=== PATIENT | female | born 1950 | race African-American/Black ===

== ENCOUNTER 2016-12-01 09:20 | Emergency (ER) ==
--- NOTE | 2016-12-01 09:50 | PROVIDER DOCUMENTATION ---
HPI-General Adult - General Chief Complaint: Generalized Pain Stated Complaint: HURTING ALL OVER,WEAKNESS Time Seen by Provider: 12/01/16 09:32 Source: patient Allergies/Adverse Reactions: Patient Allergies Allergy/AdvReac Type Severity Reaction Status Date / Time No Known Allergies Allergy Verified 12/01/16 09:45 - History of Present Illness -Gen Adult Nature of Presenting Problems: 66 y/o BF c/o generalized body aches x 1 day. Pt states mild cough, not productive. Fever/chills, although she has not taken her temp at home. Denies any sick contacts. Has not had the influenza vaccine. Reports more frequent urination, although she is unsure if this is any different than usual. States generalized abd. pain, some nausea. Denies V/D/C. Review of Systems - Adult - REVIEW OF SYSTEMS - ADULT Constitutional: reports: see HPI, chills, fever Eyes: reports: no symptoms reported. denies: blurred vision, double vision Ears, Nose, Mouth & Throat: reports: no symptoms reported. denies: ear pain, nose pain, throat pain Cardiovascular: reports: no symptoms reported. denies: chest pain, palpitations Respiratory: reports: see HPI, cough. denies: dyspnea on exertion, shortness of breath Gastrointestinal: reports: see HPI, abdominal pain, nausea. denies: diarrhea, vomiting Genitourinary: reports: see HPI, frequency. denies: dysuria, urgency Musculoskeletal: reports: no symptoms reported. denies: joint pain, joint swelling Integumentary: reports: no symptoms reported. denies: nail changes, rash Neurological: reports: no symptoms reported. denies: numbness, paresthesia Psychiatric: reports: no symptoms reported Endocrine: reports: no symptoms reported. denies: cold intolerance, heat intolerance Hematologic/Lymphatic: reports: blood clots. denies: easy bruising, prolonged bleeding Allergic/Immunologic: reports: no symptoms reported All Other Systems: Reviewed and Negative Past History - Adult - PAST MEDICAL HISTORY-ADULT Review of Records: reports: Nursing Assessment Review, Medications Reviewed Cardiovascular: reports: blood clots - PRIOR SURGERIES/PROCEDURES Surgical/Procedure History: reports: other (sinus surgery) - SOCIAL HISTORY Smoking: denies Alcohol Use Frequency: never Physical Exam-General - PHYSICAL EXAM-ADULT Initial Vital Signs Reviewed: Yes - CONSTITUTIONAL General Appearance: alert, mild distress - EYES Eyes: pink conjunctivae - HEAD, EARS, NOSE, MOUTH & THROAT HENMT: normocephalic/atraumatic, moist mucous membranes, pharyngeal erythema. negative: tonsillar exudate - NECK Neck: supple, normal inspection. negative: lymphadenopathy - RESPIRATORY Respiratory: lungs clear, normal breath sounds. negative: crackles, rales, rhonchi, stridor, wheezing - CARDIOVASCULAR Cardiovascular: regular rate, rhythm. negative: bradycardia, tachycardia - GASTROINTESTINAL (ABDOMEN) Abdominal Exam: normal bowel sounds, soft, tenderness (generalized). negative: distended, guarding, rigid, rebound, McBurney's point tenderness, Peñaloza's sign - MUSCULOSKELETAL Back Exam: no CVA tenderness Extremity: normal gait - SKIN Integumentary: normal color, normal turgor, warm/dry - NEUROLOGIC Neurologic: negative: aphasia - PSYCHIATRIC Psych/Mental Status: normal mood/affect, normal thought content, normal thought process, oriented x 3 Progress - PLAN OF CARE/RESULTS Progress/Plan/Lab Results: Laboratory Tests 12/01/16 09:46 Urine Source CLEAN CATCH Urine Color YELLOW Urine Turbidity CLEAR Urine pH 5.5 Ur Specific [place] 1.025 Urine Protein TRACE A Ur Glucose (Stick) NEGATIVE Ur Ketones (Stick) TRACE A Urine Blood SMALL A Urine Nitrite NEGATIVE Urine Bilirubin NEGATIVE Urobilinogen Dipstick NORMAL Urine Leukocytes SMALL A Urine WBC (Auto) <10 Urine RBC (Auto) <10 U Epithel Cells (Auto) <10 Urine Bacteria (Auto) NEGATIVE Orders Category Date Time Status FLAT/UPRIGHT ABD/1 VIEW CHEST [RAD] Stat Exams 12/01/16 09:44 Draft INFLUENZA SCREEN A/B Stat Lab 12/01/16 09:25 Completed URINALYSIS W/POSS RFLX CULT [URINALYSIS] Stat Lab 12/01/16 09:46 Completed URINE CULTURE [RM] Routine Lab 12/01/16 09:59 Received Acetaminophen [Tylenol] Med 12/01/16 10:56 Discontinued 1,000 mg PO NOW ONE Ondansetron Odt [Zofran Odt] Med 12/01/16 10:55 Discontinued 4 mg PO NOW ONE Vital Signs Temp Pulse Resp BP Pulse Ox 12/01/16 12:00 99.2 F 85 18 133/55 98 12/01/16 09:25 99.8 F H 110 H 18 101/46 98 No Known Allergies Allergy (Verified 12/01/16 09:45) Docusate Sodium [Colace] 100 mg PO BID PRN PRN #20 capsule 12/01/16 Magnesium Citrate [Citrate of Magnesia] 300 ml PO ONCE #1 bottle 12/01/16 Ondansetron [Zofran] 4 mg PO Q6H PRN PRN #20 tablet 12/01/16 Polyethylene Glycol 3350 [Miralax] 17 gm PO DAILY #14 powd.pack 12/01/16 Sulfamethoxazole/Trimethoprim [Bactrim Ds Tablet] 1 each PO BID #14 tablet 12/01 I&O 11/30/16 12/01/16 12/02/16 06:59 06:59 06:59 Output Total 15 Balance -15 Laboratory 12/01/16 09:46 Urine Source CLEAN CATCH Urine Color YELLOW Urine Turbidity CLEAR Urine pH 5.5 Ur Specific [place] 1.025 Urine Protein TRACE A Ur Glucose (Stick) NEGATIVE Ur Ketones (Stick) TRACE A Urine Blood SMALL A Urine Nitrite NEGATIVE Urine Bilirubin NEGATIVE Urobilinogen Dipstick NORMAL Urine Leukocytes SMALL A Urine WBC (Auto) <10 Urine RBC (Auto) <10 U Epithel Cells (Auto) <10 Urine Bacteria (Auto) NEGATIVE Discussed results and medication use with pt. Pt states feeling much better after tylenol and zofran. - XRAY 1 XRAY Study: Chest, Abdomen Impression: See EMR Report (constipation, per Dr. Corrales) Departure - Departure Time of Disposition Order: 11:50 DIAGNOSIS: Dehydration, mild UTI (urinary tract infection) Qualifiers: Urinary tract infection type: acute cystitis Hematuria presence: with hematuria Qualified Code(s): N30.01 - Acute cystitis with hematuria Constipation Qualifiers: Constipation type: unspecified constipation type Qualified Code(s): K59.00 - Constipation, unspecified Disposition: HOME 01 Certified Medical Emergency: Emergent Condition: Stable Additional Instructions: Take tylenol and/or motrin for pain. Take medications as directed. Drink plenty of fluids. Return if symptoms get worse. Follow up with PCP if symptoms get worse. ED Follow Up Instructions: You have been treated by a care provider in the Emergency Department. These instructions are being provided to you so you can have an understanding of how to care for yourself upon discharge. Upon discharge from the Emergency Department, you are responsible for making arrangements for follow-up care by a physician of your choice. Take all prescribed medications as directed. Return to the Emergency Department immediately for any new or worsening symptoms. You may call the Physician Referral phone number at [phone] to obtain a list of Physicians who are taking new patients. Prescriptions: Sulfamethoxazole/Trimethoprim [Bactrim Ds Tablet] 1 each PO BID #14 tablet Magnesium Citrate [Citrate of Magnesia] 300 ml PO ONCE #1 bottle Docusate Sodium [Colace] 100 mg PO BID PRN PRN #20 capsule PRN Reason: Constipation Polyethylene Glycol 3350 [Miralax] 17 gm PO DAILY #14 powd.pack Ondansetron [Zofran] 4 mg PO Q6H PRN PRN #20 tablet PRN Reason: Nausea Referrals: Edgardo Bergman MD [Primary Care Provider] - Forms: Return to School/Parent Work Instructions: Urinary Tract Infection, [id number], Dehydration, Adult, Easy- to-Read, Constipation, Adult Attestation - Physician/ Mid-level Attestation Patient care was provided by Mid-level provider ([employer]EP[employer] LASTER/PA):: Yes Mid-level provider:: Eleanor Abraham Mid-level documentation review:: The Mid-level provider documentation, treatment plan and medical decision making was reviewed by the physician who agrees with all treatment and medical decision making by the MLP.
[2016-12-01 09:52] LABS: URINE MICRO REVIEW NEEDED? NO; URINE SOURCE CLEAN CATCH
[2016-12-01 09:56] LABS: BILIRUBIN URINE NEGATIVE (NEGATIVE); BLOOD URINE SMALL (NEGATIVE); COLOR YELLOW; GLUCOSE URINE NEGATIVE (NEGATIVE); LEUKOCYTES URINE SMALL (NEGATIVE); NITRITE URINE NEGATIVE (NEGATIVE); PH URINE 5.5; PROTEIN URINE TRACE mg/dL (NEGATIVE); SP GRAVITY URINE 1.025; TURBIDITY URINE CLEAR (CLEAR); UR EPITHELIAL CELLS <10 /HPF (<10); URINE BACTERIA NEGATIVE /HPF; URINE CULTURE NEEDED? YES; URINE RBC <10 /HPF (<10); URINE WBC <10 /HPF (<10); UROBILINOGEN URINE NORMAL (NORMAL)
[2016-12-01] MEDS ORDERED: ZOFRAN ODT PO ONE (10:55)
[2016-12-01] MEDS ORDERED: TYLENOL PO ONE (10:56)
[2016-12-01 12:00] VITALS: BP 133/55
--- NOTE | 2016-12-01 12:14 | Diag Imaging Result Document ---
PROCEDURE NAME: FLAT/UPRIGHT ABD/1 VIEW CHEST - 12/01/2016 FLAT AND UPRIGHT ABDOMEN: FINDINGS: There is some stool throughout the colon. There is no evidence of organomegaly or mass, and the stomach and small bowel are not distended. There is some curvature of the thoracolumbar spine with convexity to the right, which has not changed since 01/10/2016. IMPRESSION: Mild constipation. PC CHEST: FINDINGS: The appearance of the chest has not changed significantly since 01/10/2016. IMPRESSION: No evidence of acute disease.
== END 2016-12-01 12:13 | disposition home or self-care (01) ==
LOC: ED 09:20
DX: N30.01 Acute cystitis with hematuria (principal); E86.0 Dehydration; K59.00 Constipation, unspecified; R53.1 Weakness; R52 Pain, unspecified; R05 Cough; R50.9 Fever, unspecified; R35.0 Frequency of micturition; R10.84 Generalized abdominal pain; R11.0 Nausea; R10.817 Generalized abdominal tenderness; Z86.718 Personal history of other venous thrombosis and embolism
CPT/HCPCS: 74022; 81001; 87088; 87804; 99283